=== PATIENT | male | born 1935 | race Caucasian/White ===

== ENCOUNTER 2021-08-05 01:59 | Emergency (ER) | payer OTHER, MEDICAID ==
[~2021-08-05] VITALS: Ht 170.2 cm; Wt 74.8 kg
[~2021-08-05 01:59] MED LIST: ACET325T PO; ACET325T53 PO; ACET500P25 PO; ALEN70TA3 PO; CALC-823 PO; CARB200T PO; CRAN200C PO; DEXT1CAP3 PO; DIVA125T2 PO; DOCU-144 PO; DONE-49 PO; FERR-69 PO; FLEETMO RC; FOLI-43 PO; LINA5TAB2 PO; MEMA10TA PO; METF-379 PO; MOM PO; MULT-1193 PO; OMEP20CA15 PO; POLY15DR31 EACH EYE; SENN8.6T19 PO; SYN50 PO
[2021-08-05 02:08] VITALS: BP_SYST 139
[2021-08-05 03:00] LABS: BASOPHILS % (AUTO) 0.6 % (0.0-2.0); EOSINOPHILS # (AUTO) 0.1 K/uL (0.0-0.4); HEMATOCRIT 27.9 % (36-54); HEMOGLOBIN 9.7 g/dL (14.0-18.0); LYMPHOCYTES # (AUTO) 0.7 K/uL (1.0-5.5); LYMPHOCYTES % (AUTO) 24.3 % (20.5-51.5); MEAN CORPUSCULAR HEMOGLOBIN 33 pg (27-31); MEAN CORPUSCULAR HGB CONC 35 % (32-36); MEAN CORPUSCULAR VOLUME 96 fL (79.0-98.0); MONOCYTES # (AUTO) 0.3 K/uL (0.0-1.0); MONOCYTES % (AUTO) 9.8 % (1.7-9.3); NEUTROPHILS # (AUTO) 1.8 K/uL (1.8-7.7); NEUTROPHILS % (AUTO) 63.3 % (40.0-70.0); PLATELET COUNT (AUTO) 115 K/uL (130-430); RED CELL DISTRIBUTION WIDTH 14.5 % (9.0-15.0); WHITE BLOOD COUNT (AUTO) 2.9 K/uL (4.8-10.8)
[2021-08-05 03:09] LABS: ANION GAP 5 (5-15); CALCIUM 7.8 mg/dL (8.4-11.0); CHLORIDE 108 mmol/L (98-107); CREATININE 1.63 mg/dL (0.55-1.30); GLUCOSE 115 mg/dL (70-99); POTASSIUM 3.6 mmol/L (3.5-5.1); SODIUM SERUM 141 mmol/L (136-145); UREA NITROGEN, BLOOD 32 mg/dL (8-21)
[2021-08-05 03:22] LABS: ALANINE AMINOTRANSFERASE 31 U/L (12-78); ALBUMIN 2.7 g/dL (3.4-4.8); ASPARTATE AMINOTRANSFERASE 21 U/L (10-37); TOTAL BILIRUBIN 0.4 mg/dL (0.0-1.0)
[2021-08-05 03:30] LABS: ALCOHOL, BLOOD < 3 mg/dL (<10)
[2021-08-05 03:50] LABS: ACETAMINOPHEN < 1 ug/mL (1-30); THYROID STIMULATING HORMONE 7.14 uIu/mL (0.36-3.74)
[2021-08-05] MEDS ORDERED: NACL 0.9% 1,000 ML IV ONE (04:00)
[2021-08-05] MEDS ORDERED: HALOPERIDOL LACTATE 5 MG/ML VIAL IM ONE ×3 (04:15→05:30)
[2021-08-05] MEDS ORDERED: DIPHENHYDRAMINE INJ 50 MG/ML VIAL IM ONE (04:15)
[2021-08-05] MEDS ORDERED: HALOPERIDOL LACTATE 5 MG/ML VIAL ONE (04:23)
[2021-08-05] MEDS ORDERED: LORazepam 2 MG/ML VIAL IM ONE (05:30)
[2021-08-05 06:24] LABS: BILIRUBIN,URINE NEGATIVE (NEGATIVE); CLARITY/URINE CLEAR (CLEAR); COLOR,URINE YELLOW (YELLOW); GLUCOSE,URINE TRACE (NEGATIVE); KETONES,URINE NEGATIVE (NEGATIVE); LEUKOCYTE ESTERASE ,URINE NEGATIVE (NEGATIVE); NITRITE, URINE NEGATIVE (NEGATIVE); PROTEIN URINE TRACE (NEGATIVE); UROBILINOGEN,URINE 0.2 (0.2-1.0)
[2021-08-05 06:31] LABS: BLOOD, URINE TRACE (NEGATIVE)
[2021-08-05 06:47] LABS: BACTERIA,URINE FEW /HPF (None Seen); RBC,URINE 0-3 /HPF (0-3); WBC,URINE 0-3 /HPF (0-3)
[2021-08-05 06:51] LABS: BARBITURATE, URINE NEGATIVE (NEG <=200); BENZODIAZEPINE, URINE NEGATIVE (NEG <=150); CANNABINOID, URINE NEGATIVE (NEG <=50); COCAINE, URINE NEGATIVE (NEG <=150); METHAMPHETAMINES SCREEN,URINE NEGATIVE (NEG <=500); OPIATE, URINE NEGATIVE (NEG <=100); PHENCYCLIDINE SCREEN,URINE NEGATIVE (NEG <=25); UR TRICYCLIC ANTIDEPRESSANTS NEGATIVE (NEG <=300); URINE AMPHETAMINE NEGATIVE (NEG <=500); URINE METHADONE NEGATIVE (NEG <=200); URINE OXYCODONE SCREEN NEGATIVE (NEG <=100); URINE PROPOXYPHENE SCREEN NEGATIVE (NEG <=300)
[2021-08-05 14:10] VITALS: BP_SYST 114
== END 2021-08-05 14:11 | disposition home or self-care (01) ==
LOC: SED 01:59
DX: R45.1 Restlessness and agitation (principal); I48.91 Unspecified atrial fibrillation; I10 Essential (primary) hypertension; E11.9 Type 2 diabetes mellitus without complications; Z79.899 Other long term (current) drug therapy; Z20.822 Contact with and (suspected) exposure to COVID-19
CPT/HCPCS: 36415; 80053; 80307; 81000; 84443; 85025; 87081; 87426; 93005; 96360; 96372; 99285; G0480; G0481; G0482; J1200; J1630; J2060; J7030